=== PATIENT | male | born 1955 | race Caucasian/White ===

== ENCOUNTER 2019-05-09 01:09 | Observation (INO) | payer MEDICARE ==
[~2019-05-09] VITALS: Ht 180.3 cm; Wt 93.9 kg
[2019-05-12 13:15] VITALS: BP 145/79
== END 2019-05-12 16:46 ==
LOC: ED 02:33 → INTOOBSV 03:42 → EDIP 03:42 → 4WST 04:56
PROVIDERS: ADMIT Internal Medicine; ATTEND Internal Medicine
DX: I63.9 Cerebral infarction, unspecified (principal); G81.94 Hemiplegia, unspecified affecting left nondominant side; R13.10 Dysphagia, unspecified; I21.4 Non-ST elevation (NSTEMI) myocardial infarction; I11.0 Hypertensive heart disease with heart failure; I50.30 Unspecified diastolic (congestive) heart failure; I25.10 Atherosclerotic heart disease of native coronary artery without angina pectoris; I48.91 Unspecified atrial fibrillation; R17 Unspecified jaundice; E78.5 Hyperlipidemia, unspecified; R29.6 Repeated falls; E86.0 Dehydration; R79.89 Other specified abnormal findings of blood chemistry; E11.649 Type 2 diabetes mellitus with hypoglycemia without coma; D68.59 Other primary thrombophilia; Z79.82 Long term (current) use of aspirin; Z79.84 Long term (current) use of oral hypoglycemic drugs; Z79.899 Other long term (current) drug therapy; Z74.2 Need for assistance at home and no other household member able to render care; Z95.5 Presence of coronary angioplasty implant and graft; Z79.02 Long term (current) use of antithrombotics/antiplatelets
CPT/HCPCS: 70450; 71045; 80053; 81003; 82947; 82962; 83036; 83605; 84484; 85025; 85610; 93005; 96361; 96372; 96374; 96375; 97116; 97162; 97530; 99291; G0378; J1815; J2405; J7030; J7042

== ENCOUNTER 2019-08-04 16:57 | Inpatient (IN) | payer MEDICARE ==
[~2019-08-04] VITALS: Ht 182.9 cm; Wt 96.1 kg
[~2019-08-04 16:57] MED LIST: AMLO5TAB10 PO; APIX5TAB PO; ASPI81TA45 PO; ATOR40TA78 PO; BLOO1EAC91 SC; ENAL10TA PO; GLIP5TAB10 PO; INSU100I11 SQ-INSULIN; LANC1COM SC; LISI-170 PO; METF10007 PO; METF500T PO; METO-93 PO; METO50TA82 PO; TICA90TA PO; UBID100C24 PO; enalapril PO; statin PO
--- NOTE | 2019-08-04 17:16 | NUR ---
PT BIB [facility] FOR INCREASED LETHARGY, NAUSEA AND VOMITTING BLOODY X 3 DAYS. PT + FOR TAKING BLOOD THINNERS (CARDIAC HX). PT GIVEN IVP 4MG ZOFRAN EN ROUTE BY EMS, 20G PIV R HAND AND 18G PIV L FOREARM ESTABLISHED IN FIELD. FS PER EMS WAS 125. PT AAO X 4, DRESSED IN GOWN AND ATTACHED TO MONITOR. PER REPORT, PT HAS AXILLARY TEMP OF 102, TEMP HERE ORALLY WAS 99.5. ROOM AIR, NAD, RAPID RESPIRATORY RATE WITH SHALLOW RESPIRATIONS, LUNG SOUNDS CLEAR. CALL LIGHT WITHIN REACH AND SIDERAIL X [address] MED REC COMPLETED.
[2019-08-04] MEDS ORDERED: SODIUM CHLORIDE 0.9% 1,000 ML IV ONE (17:33)
--- NOTE | 2019-08-04 17:51 | NUR ---
PA AT BEDSIDE, RECTAL TEMP RECHECK 99.5 AND GUIAC -.
[2019-08-04 17:52] LABS: MEAN CORPUSCULAR HEMOGLOBIN 28.6 pg (27.5-34.5); MEAN CORPUSCULAR HGB CONC 32.7 g/dL (33.2-36.2); MEAN CORPUSCULAR VOLUME 87.6 fL (81-97); MEAN PLATELET VOLUME 9.7 fL (7.4-10.4); PLATELET COUNT 259 x10^3/uL (130-400); RED BLOOD COUNT 3.89 x10^6/uL (4.38-5.82); RED CELL DISTRIBUTION WIDTH 13.7 % (9.4-14.8)
[2019-08-04 18:00] LABS: ANION GAP 7 mmol/L (5-15); CHLORIDE 112 mmol/L (98-107); CREATININE 0.78 mg/dL (0.7-1.3)
[2019-08-04 18:01] LABS: ALANINE AMINOTRANSFERASE 24 U/L (12-78); ALBUMIN 3.9 g/dL (3.4-5.0)
[2019-08-04 18:05] LABS: ALKALINE PHOSPHATASE 179 U/L (45-117); BILIRUBIN,TOTAL 2.1 mg/dL (0.2-1.0); TOTAL PROTEIN 7.1 g/dL (6.4-8.2); TROPONIN I < 0.015 ng/mL (0.000-0.045)
--- NOTE | 2019-08-04 18:05 | NUR ---
IVF INFUSING PER PA ORDER.
[2019-08-04 18:14] LABS: INTERNATIONAL NORMALIZED RATIO 1.09 (0.93-1.1); PROTHROMBIN TIME 11.4 Seconds (9.6-11.5)
[2019-08-04] MEDS ORDERED: ONDANSETRON 2MG/ML, 2ML IVPush ONE (18:30)
[2019-08-04 18:38] LABS: MD YES
[2019-08-04 18:40] LABS: BAND#(MANUAL) 1.66 x10^3/uL; BANDS%(MANUAL) 13 % (0-7); LYMPH#(MANUAL) 0.26 x10^3/uL (1-3.4); LYMPHS% (MANUAL) 2 % (22-44); MONOS#(MANUAL) 0.38 x10^3/uL (0.3-2.7); MONOS% (MANUAL) 3 % (2-9); SEGS% (MANUAL) 82 % (42-75)
[2019-08-04] MEDS ORDERED: ONDANSETRON 2MG/ML, 2ML ONE (18:40)
[2019-08-04 18:41] LABS: <PLATELET ESTIMATE> ADEQUATE; <RBC MORPHOLOGY> NORMAL; LARGE PLATELETS 1+
--- NOTE | 2019-08-04 18:43 | NUR ---
MD AT BEDSIDE FOR EVAL. PT MEDICATED FOR NAUSEA.
--- NOTE | 2019-08-04 19:11 | NUR ---
PT GIVEN URINAL AND EDUCATED ON NEED FOR URINE SAMPLE. PT VERBALIZED UNDERSTANDING.
[2019-08-04] MEDS ORDERED: POTASSIUM CHLORIDE 20 MEQ in SODIUM CHLORIDE 0.9% 1,000 ML IV ONE (19:34)
[2019-08-04] MEDS ORDERED: NS + 20MEQ KCL 1,000 ML IV ONE (19:53)
--- NOTE | 2019-08-04 19:57 | NUR ---
NEW ORDERS RECEIVED AND IMPLEMENTED, ADMITTING MD AT BEDSIDE.
[2019-08-04] MEDS ORDERED: SODIUM CHLORIDE FLUSH 10ML SYR IVF PRN (20:00)
[2019-08-04] MEDS ORDERED: CEFTRIAXONE PMX 2GM/50ML 50 ML IV SCH (20:30)
[2019-08-04] MEDS ORDERED: POTASSIUM CHLORIDE 40 MEQ in SODIUM CHLORIDE 0.9% 500 ML IV ONE (20:30)
[2019-08-04] MEDS ORDERED: PROMETHAZINE 25 MG/ML, 1ML IM PRN (20:30)
[2019-08-04] MEDS ORDERED: ACETAMINOPHEN 325 MG TABLET PO PRN (20:30)
[2019-08-04] MEDS ORDERED: ENALAPRILAT 1.25 MG/ML, 2ML IVPush PRN (20:30)
--- NOTE | 2019-08-04 20:33 | NUR ---
REPORT GIVEN TO NHI CORREA. PT TO TRANFER TO INPATIENT STATUS.
--- NOTE | 2019-08-04 20:44 | NUR ---
REPORT GIVEN TO NHI LINCOLN. PT TO TRANSFER TO INPATIENT STATUS.
[2019-08-04 21:30] LABS: HEMOGLOBIN A1C 6.3 % (4.2-6.3)
[2019-08-04 21:31] LABS: MICROSCOPIC NOT IND
[2019-08-04 21:32] LABS: CULTURE INDICATED? NO
[2019-08-04] MEDS: PANTOPRAZOLE 40 MG IV IVPush SCH (22:36)
[2019-08-04] MEDS: INSULIN LISPRO 100 UNITS/ML, PEN SQ-INSULIN SCH (22:54)
[2019-08-04] MEDS: LACTATED RINGERS 1,000 ML IV SCH (23:20)
[2019-08-04] MEDS: LISINOPRIL 20 MG TABLET PO SCH (23:21)
[2019-08-04 23:23] VITALS: BP 123/73
[2019-08-05] VITALS (9 sets, daily range): BP systolic 128–207; BP diastolic 72–107
[2019-08-05] MEDS ORDERED: OMNIPAQUE 350 MG/ML, 100ML BOTTLE ONE ×2 (01:07→22:48)
[2019-08-05 02:43] LABS: MEAN CORPUSCULAR HGB CONC 32.3 g/dL (33.2-36.2); MEAN CORPUSCULAR VOLUME 89.8 fL (81-97); MEAN PLATELET VOLUME 9.3 fL (7.4-10.4); PLATELET COUNT 243 x10^3/uL (130-400); RED CELL DISTRIBUTION WIDTH 13.9 % (9.4-14.8)
[2019-08-05 02:53] LABS: ALANINE AMINOTRANSFERASE 20 U/L (12-78); ALBUMIN 3.2 g/dL (3.4-5.0); ANION GAP 7 mmol/L (5-15); CALCIUM 8.2 mg/dL (8.5-10.1); CHLORIDE 112 mmol/L (98-107); CREATININE 0.71 mg/dL (0.7-1.3)
[2019-08-05 02:56] LABS: ALKALINE PHOSPHATASE 138 U/L (45-117); BAND#(MANUAL) 0.76 x10^3/uL; BANDS%(MANUAL) 4 % (0-7); BILIRUBIN,TOTAL 2.2 mg/dL (0.2-1.0); LYMPH#(MANUAL) 1.14 x10^3/uL (1-3.4); LYMPHS% (MANUAL) 6 % (22-44); MD YES; MONOS#(MANUAL) 1.14 x10^3/uL (0.3-2.7); MONOS% (MANUAL) 6 % (2-9); SEG#(MANUAL) 15.96 x10^3/uL (1.8-6.8); SEGS% (MANUAL) 84 % (42-75); TOTAL PROTEIN 6.3 g/dL (6.4-8.2)
[2019-08-05 02:57] LABS: <PLATELET ESTIMATE> ADEQUATE; <RBC MORPHOLOGY> NORMAL
[2019-08-05 02:58] LABS: LARGE PLATELETS 1+
[2019-08-05] MEDS: INSULIN LISPRO 100 UNITS/ML, PEN SQ-INSULIN SCH ×4 (07:00→20:25)
[2019-08-05] MEDS: LISINOPRIL 20 MG TABLET PO SCH ×2 (08:20→21:00)
[2019-08-05] MEDS: METOPROLOL SUCCINATE 50 MG TAB.ER.24H PO SCH (08:21)
[2019-08-05] MEDS: PANTOPRAZOLE 40 MG IV IVPush SCH ×2 (08:21→23:10)
[2019-08-05] MEDS: LACTATED RINGERS 1,000 ML IV SCH ×2 (08:22→16:15)
[2019-08-05] MEDS: ONDANSETRON 2MG/ML, 2ML IVPush PRN (14:42)
[2019-08-05] MEDS ORDERED: AMPICILLIN/SULBACTAM 3 GM in SODIUM CHLORIDE 0.9% 100 ML IV SCH (16:00)
[2019-08-05 18:14] LABS: BILIRUBIN, DIRECT 0.3 mg/dL (0.1-0.2); BILIRUBIN,INDIRECT 1.8 mg/dL (0.0-2.0); BILIRUBIN,TOTAL 2.1 mg/dL (0.2-1.0)
[2019-08-05] MEDS ORDERED: hydrALAzine 20 MG/ML, 1ML IV ONE (21:00)
[2019-08-05] MEDS ORDERED: VANCOMYCIN PER PHARMACY MC PRN (22:30)
[2019-08-05] MEDS ORDERED: PHARMACOKINETIC MONITORING MC PRN (23:00)
[2019-08-05] MEDS: PIPERACILLIN/TAZO/PMX 3.375GM 50 ML IV SCH (23:09)
[2019-08-05 23:31] LABS: ALANINE AMINOTRANSFERASE 19 U/L (12-78); ALBUMIN 3.2 g/dL (3.4-5.0); ANION GAP 9 mmol/L (5-15); CALCIUM 8.4 mg/dL (8.5-10.1); CHLORIDE 104 mmol/L (98-107); CREATININE 0.67 mg/dL (0.7-1.3)
[2019-08-05 23:33] LABS: BASOPHILS # (AUTO) 0.05 x10^3/uL (0-0.1); BASOPHILS % (AUTO) 0 % (0-1); EOSINOPHILS % (AUTO) 0 % (1-7); LYMPHOCYTES % (AUTO) 3 % (22-44); MD NO; MEAN CORPUSCULAR HEMOGLOBIN 28.4 pg (27.5-34.5); MEAN CORPUSCULAR HGB CONC 32.5 g/dL (33.2-36.2); MEAN CORPUSCULAR VOLUME 87.7 fL (81-97); MEAN PLATELET VOLUME 10.1 fL (7.4-10.4); MONOCYTES # (AUTO) 0.49 x10^3/uL (0.2-0.8); MONOCYTES % (AUTO) 4 % (2-9); NEUTROPHILS # (AUTO) 12.94 x10^3/uL (1.8-6.8); NEUTROPHILS % (AUTO) 93 % (42-75); PLATELET COUNT 146 x10^3/uL (130-400); RED BLOOD COUNT 3.82 x10^6/uL (4.38-5.82); RED CELL DISTRIBUTION WIDTH 13.6 % (9.4-14.8)
[2019-08-05 23:35] LABS: ALKALINE PHOSPHATASE 138 U/L (45-117); BILIRUBIN,TOTAL 2.2 mg/dL (0.2-1.0); TOTAL PROTEIN 6.5 g/dL (6.4-8.2); TROPONIN I 0.039 ng/mL (0.000-0.045)
[2019-08-05] MEDS: VANCOMYCIN 2,000 MG in SODIUM CHLORIDE 0.9% 500 ML IV SCH (23:51)
[2019-08-06] MEDS ORDERED: POTASSIUM PHOSPHATE 22 MEQ in SODIUM CHLORIDE 0.9% 500 ML IV ONE
[2019-08-06 02:17] LABS: MICROSCOPIC NOT IND
[2019-08-06 02:26] LABS: CULTURE INDICATED? NO
[2019-08-06 04:41] LABS: BASOPHILS # (AUTO) 0.03 x10^3/uL (0-0.1); BASOPHILS % (AUTO) 0 % (0-1); EOSINOPHILS # (AUTO) 0.15 x10^3/uL (0-0.4); EOSINOPHILS % (AUTO) 1 % (1-7); LYMPHOCYTES # (AUTO) 0.69 x10^3/uL (1-3.4); LYMPHOCYTES % (AUTO) 5 % (22-44); MD NO; MEAN CORPUSCULAR HEMOGLOBIN 29.1 pg (27.5-34.5); MEAN CORPUSCULAR HGB CONC 32.8 g/dL (33.2-36.2); MEAN CORPUSCULAR VOLUME 88.8 fL (81-97); MEAN PLATELET VOLUME 9.5 fL (7.4-10.4); MONOCYTES # (AUTO) 0.75 x10^3/uL (0.2-0.8); MONOCYTES % (AUTO) 5 % (2-9); NEUTROPHILS # (AUTO) 12.51 x10^3/uL (1.8-6.8); NEUTROPHILS % (AUTO) 89 % (42-75); PLATELET COUNT 220 x10^3/uL (130-400); RED BLOOD COUNT 3.82 x10^6/uL (4.38-5.82); RED CELL DISTRIBUTION WIDTH 13.6 % (9.4-14.8)
[2019-08-06 04:53] LABS: ALANINE AMINOTRANSFERASE 16 U/L (12-78); ANION GAP 8 mmol/L (5-15); CALCIUM 8.4 mg/dL (8.5-10.1); CHLORIDE 107 mmol/L (98-107); CREATININE 0.61 mg/dL (0.7-1.3)
[2019-08-06 04:55] LABS: ALKALINE PHOSPHATASE 124 U/L (45-117); BILIRUBIN,TOTAL 2.2 mg/dL (0.2-1.0); TOTAL PROTEIN 6.3 g/dL (6.4-8.2)
[2019-08-06] MEDS: PIPERACILLIN/TAZO/PMX 3.375GM 50 ML IV SCH ×4 (04:55→22:40)
[2019-08-06] MEDS: INSULIN LISPRO 100 UNITS/ML, PEN SQ-INSULIN SCH ×4 (07:00→21:05)
[2019-08-06] MEDS ORDERED: FENTANYL PF 100 MCG/2ML ONE ×2 (07:55→07:56)
[2019-08-06] MEDS ORDERED: MIDAZOLAM 1 MG/ML, 5ML ONE (07:56)
[2019-08-06] MEDS ORDERED: MAGNESIUM SULFATE PMX 2GM/50ML 50 ML IV ONE ×2 (08:00)
[2019-08-06] MEDS ORDERED: PROPOFOL 10 MG/ML, 20ML ONE (08:00)
[2019-08-06] MEDS: PANTOPRAZOLE 40 MG IV IVPush SCH ×2 (08:30→17:09)
[2019-08-06] MEDS: METOPROLOL SUCCINATE 50 MG TAB.ER.24H PO SCH (10:31)
[2019-08-06] MEDS: LISINOPRIL 20 MG TABLET PO SCH ×2 (10:32→21:05)
[2019-08-06] MEDS: VANCOMYCIN 2,000 MG in SODIUM CHLORIDE 0.9% 500 ML IV SCH (17:10)
[2019-08-07 04:38] LABS: BASOPHILS # (AUTO) 0.09 x10^3/uL (0-0.1); BASOPHILS % (AUTO) 1 % (0-1); EOSINOPHILS # (AUTO) 0.09 x10^3/uL (0-0.4); EOSINOPHILS % (AUTO) 1 % (1-7); LYMPHOCYTES # (AUTO) 1.13 x10^3/uL (1-3.4); LYMPHOCYTES % (AUTO) 13 % (22-44); MD NO; MEAN CORPUSCULAR HEMOGLOBIN 28.4 pg (27.5-34.5); MEAN CORPUSCULAR HGB CONC 32.6 g/dL (33.2-36.2); MEAN PLATELET VOLUME 9.9 fL (7.4-10.4); MONOCYTES # (AUTO) 0.78 x10^3/uL (0.2-0.8); MONOCYTES % (AUTO) 9 % (2-9); NEUTROPHILS # (AUTO) 6.79 x10^3/uL (1.8-6.8); NEUTROPHILS % (AUTO) 77 % (42-75); PLATELET COUNT 217 x10^3/uL (130-400); RED BLOOD COUNT 3.75 x10^6/uL (4.38-5.82); RED CELL DISTRIBUTION WIDTH 13.5 % (9.4-14.8)
[2019-08-07 04:48] LABS: ALBUMIN 2.9 g/dL (3.4-5.0); ANION GAP 7 mmol/L (5-15); CALCIUM 8.1 mg/dL (8.5-10.1); CHLORIDE 108 mmol/L (98-107)
[2019-08-07 04:52] LABS: ALANINE AMINOTRANSFERASE 14 U/L (12-78); ALKALINE PHOSPHATASE 113 U/L (45-117); BILIRUBIN,TOTAL 2.2 mg/dL (0.2-1.0); CREATININE 0.68 mg/dL (0.7-1.3)
[2019-08-07] MEDS: PIPERACILLIN/TAZO/PMX 3.375GM 50 ML IV SCH ×4 (04:59→22:27)
[2019-08-07] MEDS: INSULIN LISPRO 100 UNITS/ML, PEN SQ-INSULIN SCH ×4 (07:00→20:51)
[2019-08-07] MEDS: ONDANSETRON 2MG/ML, 2ML IVPush PRN (07:20)
[2019-08-07] MEDS: PANTOPRAZOLE 40 MG IV IVPush SCH ×2 (07:20→16:15)
[2019-08-07] MEDS: METOPROLOL SUCCINATE 50 MG TAB.ER.24H PO SCH (08:56)
[2019-08-07] MEDS: LISINOPRIL 20 MG TABLET PO SCH ×2 (08:57→20:44)
[2019-08-07] MEDS: POTASSIUM CHLORIDE 10% 40 MEQ/30 ML UDC PO SCH ×2 (08:57→20:43)
[2019-08-07] MEDS: VANCOMYCIN 2,000 MG in SODIUM CHLORIDE 0.9% 500 ML IV SCH (11:16)
[2019-08-07] MEDS: TEMAZEPAM 15 MG CAPSULE PO PRN ×2 (20:43→22:27)
[2019-08-07] MEDS: APIXABAN 5 MG TABLET PO SCH (20:44)
[2019-08-08 01:45] VITALS: BP 164/95
[2019-08-08] MEDS: PIPERACILLIN/TAZO/PMX 3.375GM 50 ML IV SCH ×4 (04:30→22:33)
[2019-08-08 05:04] LABS: CHLORIDE 109 mmol/L (98-107)
[2019-08-08 05:08] LABS: BASOPHILS # (AUTO) 0.12 x10^3/uL (0-0.1); BASOPHILS % (AUTO) 2 % (0-1); EOSINOPHILS # (AUTO) 0.31 x10^3/uL (0-0.4); EOSINOPHILS % (AUTO) 5 % (1-7); LYMPHOCYTES # (AUTO) 1.75 x10^3/uL (1-3.4); LYMPHOCYTES % (AUTO) 27 % (22-44); MD NO; MEAN CORPUSCULAR HEMOGLOBIN 28.8 pg (27.5-34.5); MEAN CORPUSCULAR HGB CONC 33.1 g/dL (33.2-36.2); MEAN PLATELET VOLUME 10.2 fL (7.4-10.4); MONOCYTES # (AUTO) 0.68 x10^3/uL (0.2-0.8); MONOCYTES % (AUTO) 10 % (2-9); NEUTROPHILS # (AUTO) 3.69 x10^3/uL (1.8-6.8); NEUTROPHILS % (AUTO) 56 % (42-75); PLATELET COUNT 233 x10^3/uL (130-400); RED CELL DISTRIBUTION WIDTH 13.6 % (9.4-14.8)
[2019-08-08] MEDS: VANCOMYCIN 2,000 MG in SODIUM CHLORIDE 0.9% 500 ML IV SCH (05:10)
[2019-08-08 05:14] LABS: ANION GAP 6 mmol/L (5-15); CALCIUM 8.8 mg/dL (8.5-10.1); CREATININE 0.72 mg/dL (0.7-1.3); VANCOMYCIN,TROUGH 10.3 mcg/mL (5.0-10.0)
[2019-08-08 08:00] VITALS: BP 152/85
[2019-08-08] MEDS: INSULIN LISPRO 100 UNITS/ML, PEN SQ-INSULIN SCH ×4 (08:03→20:20)
[2019-08-08] MEDS: PANTOPRAZOLE 40 MG IV IVPush SCH ×2 (08:21→16:48)
[2019-08-08] MEDS: LISINOPRIL 20 MG TABLET PO SCH ×2 (08:21→20:19)
[2019-08-08] MEDS: APIXABAN 5 MG TABLET PO SCH ×2 (08:21→20:19)
[2019-08-08] MEDS: METOPROLOL SUCCINATE 50 MG TAB.ER.24H PO SCH (08:21)
[2019-08-08 10:42] VITALS: BP 154/91
[2019-08-08 13:26] VITALS: BP 161/94
[2019-08-08 14:41] VITALS: BP 149/81
[2019-08-08 19:45] VITALS: BP 160/90
[2019-08-08] MEDS: TEMAZEPAM 15 MG CAPSULE PO PRN ×2 (20:19→21:27)
[2019-08-09 00:46] VITALS: BP 183/111
[2019-08-09 00:55] VITALS: BP 164/81
[2019-08-09] MEDS: PIPERACILLIN/TAZO/PMX 3.375GM 50 ML IV SCH ×2 (04:19→10:09)
[2019-08-09 05:24] LABS: BASOPHILS # (AUTO) 0.11 x10^3/uL (0-0.1); BASOPHILS % (AUTO) 1 % (0-1); EOSINOPHILS # (AUTO) 0.32 x10^3/uL (0-0.4); EOSINOPHILS % (AUTO) 4 % (1-7); LYMPHOCYTES # (AUTO) 1.74 x10^3/uL (1-3.4); LYMPHOCYTES % (AUTO) 22 % (22-44); MD NO; MEAN CORPUSCULAR HEMOGLOBIN 28.1 pg (27.5-34.5); MEAN CORPUSCULAR HGB CONC 32.4 g/dL (33.2-36.2); MEAN CORPUSCULAR VOLUME 86.7 fL (81-97); MEAN PLATELET VOLUME 9.7 fL (7.4-10.4); MONOCYTES # (AUTO) 0.68 x10^3/uL (0.2-0.8); MONOCYTES % (AUTO) 9 % (2-9); NEUTROPHILS # (AUTO) 4.91 x10^3/uL (1.8-6.8); NEUTROPHILS % (AUTO) 63 % (42-75); PLATELET COUNT 248 x10^3/uL (130-400); RED BLOOD COUNT 3.84 x10^6/uL (4.38-5.82); RED CELL DISTRIBUTION WIDTH 13.8 % (9.4-14.8)
[2019-08-09 05:34] LABS: ANION GAP 7 mmol/L (5-15); CALCIUM 8.2 mg/dL (8.5-10.1); CHLORIDE 107 mmol/L (98-107); CREATININE 0.73 mg/dL (0.7-1.3)
[2019-08-09 07:05] VITALS: BP 152/92
[2019-08-09 08:33] LABS: OCCULT BLOOD NEGATIVE (NEGATIVE)
[2019-08-09] MEDS: PANTOPRAZOLE 40 MG IV IVPush SCH ×2 (08:36→16:48)
[2019-08-09] MEDS: LISINOPRIL 20 MG TABLET PO SCH ×2 (08:37→20:17)
[2019-08-09] MEDS: INSULIN LISPRO 100 UNITS/ML, PEN SQ-INSULIN SCH ×4 (08:37→20:18)
[2019-08-09] MEDS: METOPROLOL SUCCINATE 50 MG TAB.ER.24H PO SCH (08:37)
[2019-08-09] MEDS: APIXABAN 5 MG TABLET PO SCH ×2 (08:37→20:17)
[2019-08-09 14:15] VITALS: BP 158/88
[2019-08-09] MEDS: CEFTRIAXONE PMX 2GM/50ML 50 ML IV SCH (16:48)
[2019-08-09 18:58] VITALS: BP 199/103
[2019-08-09 20:04] VITALS: BP 171/91
[2019-08-09] MEDS: TEMAZEPAM 15 MG CAPSULE PO PRN ×2 (20:17→21:39)
[2019-08-10 01:38] VITALS: BP 157/94
[2019-08-10] MEDS: CEFTRIAXONE PMX 2GM/50ML 50 ML IV SCH ×2 (04:22→16:20)
[2019-08-10 05:25] LABS: CHLORIDE 107 mmol/L (98-107)
[2019-08-10 05:30] LABS: ANION GAP 8 mmol/L (5-15); CALCIUM 8.6 mg/dL (8.5-10.1); CREATININE 0.68 mg/dL (0.7-1.3)
[2019-08-10 05:46] LABS: BASOPHILS % (AUTO) 1 % (0-1); EOSINOPHILS # (AUTO) 0.37 x10^3/uL (0-0.4); EOSINOPHILS % (AUTO) 4 % (1-7); LYMPHOCYTES # (AUTO) 1.85 x10^3/uL (1-3.4); LYMPHOCYTES % (AUTO) 20 % (22-44); MD NO; MEAN CORPUSCULAR HEMOGLOBIN 28.6 pg (27.5-34.5); MEAN CORPUSCULAR HGB CONC 33.2 g/dL (33.2-36.2); MEAN CORPUSCULAR VOLUME 86.3 fL (81-97); MEAN PLATELET VOLUME 9.4 fL (7.4-10.4); MONOCYTES # (AUTO) 0.71 x10^3/uL (0.2-0.8); MONOCYTES % (AUTO) 8 % (2-9); NEUTROPHILS # (AUTO) 6.38 x10^3/uL (1.8-6.8); NEUTROPHILS % (AUTO) 68 % (42-75); PLATELET COUNT 300 x10^3/uL (130-400); RED BLOOD COUNT 4.03 x10^6/uL (4.38-5.82); RED CELL DISTRIBUTION WIDTH 13.4 % (9.4-14.8)
[2019-08-10] MEDS: INSULIN LISPRO 100 UNITS/ML, PEN SQ-INSULIN SCH ×4 (07:00→20:24)
[2019-08-10 08:26] VITALS: BP 139/93
[2019-08-10] MEDS: LISINOPRIL 20 MG TABLET PO SCH ×2 (08:29→20:23)
[2019-08-10] MEDS: APIXABAN 5 MG TABLET PO SCH ×2 (08:29→20:23)
[2019-08-10] MEDS: PANTOPRAZOLE 40 MG IV IVPush SCH ×2 (08:29→16:20)
[2019-08-10] MEDS: METOPROLOL SUCCINATE 50 MG TAB.ER.24H PO SCH (08:29)
[2019-08-10 14:23] VITALS: BP 164/98
[2019-08-10] MEDS: TEMAZEPAM 15 MG CAPSULE PO PRN ×2 (20:23→21:26)
[2019-08-10 20:44] VITALS: BP 157/87
[2019-08-11 00:57] VITALS: BP 160/89
[2019-08-11] MEDS: CEFTRIAXONE PMX 2GM/50ML 50 ML IV SCH ×2 (04:37→12:10)
[2019-08-11 05:29] LABS: BASOPHILS % (AUTO) 1 % (0-1); EOSINOPHILS # (AUTO) 0.36 x10^3/uL (0-0.4); EOSINOPHILS % (AUTO) 4 % (1-7); LYMPHOCYTES # (AUTO) 1.58 x10^3/uL (1-3.4); LYMPHOCYTES % (AUTO) 16 % (22-44); MD NO; MEAN CORPUSCULAR HEMOGLOBIN 29.1 pg (27.5-34.5); MEAN CORPUSCULAR HGB CONC 33.3 g/dL (33.2-36.2); MEAN CORPUSCULAR VOLUME 87.2 fL (81-97); MONOCYTES # (AUTO) 0.82 x10^3/uL (0.2-0.8); MONOCYTES % (AUTO) 8 % (2-9); NEUTROPHILS # (AUTO) 7.17 x10^3/uL (1.8-6.8); NEUTROPHILS % (AUTO) 72 % (42-75); PLATELET COUNT 312 x10^3/uL (130-400); RED BLOOD COUNT 3.94 x10^6/uL (4.38-5.82); RED CELL DISTRIBUTION WIDTH 13.7 % (9.4-14.8)
[2019-08-11 05:41] LABS: ANION GAP 7 mmol/L (5-15); CALCIUM 8.8 mg/dL (8.5-10.1); CHLORIDE 107 mmol/L (98-107)
[2019-08-11 05:42] LABS: CREATININE 0.76 mg/dL (0.7-1.3)
[2019-08-11] MEDS: APIXABAN 5 MG TABLET PO SCH ×2 (08:37→20:54)
[2019-08-11] MEDS: METOPROLOL SUCCINATE 50 MG TAB.ER.24H PO SCH (08:37)
[2019-08-11] MEDS: PANTOPRAZOLE 40 MG IV IVPush SCH ×2 (08:37→17:31)
[2019-08-11] MEDS: LISINOPRIL 20 MG TABLET PO SCH ×2 (08:38→20:53)
[2019-08-11] MEDS: INSULIN LISPRO 100 UNITS/ML, PEN SQ-INSULIN SCH ×4 (08:39→20:55)
[2019-08-11 12:30] VITALS: BP 143/89
[2019-08-11 15:22] VITALS: BP 150/88
[2019-08-11 18:50] VITALS: BP 148/80
[2019-08-11] MEDS: TEMAZEPAM 15 MG CAPSULE PO PRN ×2 (20:54→22:11)
[2019-08-12 00:03] VITALS: BP 154/82
[2019-08-12 07:55] VITALS: BP 133/81
[2019-08-12] MEDS: PANTOPRAZOLE 40 MG IV IVPush SCH (08:35)
[2019-08-12] MEDS: APIXABAN 5 MG TABLET PO SCH (08:36)
[2019-08-12] MEDS: METOPROLOL SUCCINATE 50 MG TAB.ER.24H PO SCH (08:36)
[2019-08-12] MEDS: INSULIN LISPRO 100 UNITS/ML, PEN SQ-INSULIN SCH ×2 (08:36→11:00)
[2019-08-12] MEDS: LISINOPRIL 20 MG TABLET PO SCH (08:36)
[2019-08-12] MEDS: CEFTRIAXONE PMX 2GM/50ML 50 ML IV SCH (08:36)
[2019-08-12] MEDS ORDERED: PANTOPROZOLE 40MG TABLET PO SCH (09:30)
[2019-08-12 13:15] VITALS: BP 138/81
[2019-08-12] MEDS ORDERED: CEFT2FRO2 IV (15:54)
[2019-08-12] MEDS ORDERED: PANT40TA5 PO (15:54)
== END 2019-08-12 17:15 | DRG 871 ==
LOC: ED 17:31 → EDIP 19:34 → 4EST 20:50 → CCU 08-05 21:41 → 4EST 08-08 10:38
PROVIDERS: ADMIT Family Medicine; ATTEND Internal Medicine
PROC: 0DJ08ZZ Inspection of Upper Intestinal Tract, Via Natural or Artificial Opening Endoscopic (ICD-10-PCS; 2019-08-06)
PROC: 0T9B70Z Drainage of Bladder with Drainage Device, Via Natural or Artificial Opening (ICD-10-PCS; principal; 2019-08-06 09:00)
DX: A40.8 Other streptococcal sepsis (principal); K29.01 Acute gastritis with bleeding; J15.4 Pneumonia due to other streptococci; J96.01 Acute respiratory failure with hypoxia; N39.0 Urinary tract infection, site not specified; D68.69 Other thrombophilia; E87.2 Acidosis; I50.30 Unspecified diastolic (congestive) heart failure; I69.354 Hemiplegia and hemiparesis following cerebral infarction affecting left non-dominant side; I48.0 Paroxysmal atrial fibrillation; D64.9 Anemia, unspecified; E11.9 Type 2 diabetes mellitus without complications; E78.5 Hyperlipidemia, unspecified; E87.6 Hypokalemia; I11.0 Hypertensive heart disease with heart failure; I25.10 Atherosclerotic heart disease of native coronary artery without angina pectoris; I35.0 Nonrheumatic aortic (valve) stenosis; K40.90 Unilateral inguinal hernia, without obstruction or gangrene, not specified as recurrent; K44.9 Diaphragmatic hernia without obstruction or gangrene; R04.0 Epistaxis; R13.10 Dysphagia, unspecified; R32 Unspecified urinary incontinence; Z79.01 Long term (current) use of anticoagulants; Z79.84 Long term (current) use of oral hypoglycemic drugs; Z95.5 Presence of coronary angioplasty implant and graft; Z82.49 Family history of ischemic heart disease and other diseases of the circulatory system; I69.391 Dysphagia following cerebral infarction
CPT/HCPCS: 36415; 36600; 70100; 71045; 71275; 74018; 74177; 80048; 80053; 80202; 81003; 82247; 82248; 82272; 82330; 82803; 82962; 83036; 83605; 83690; 83735; 83880; 84100; 84484; 85014; 85018; 85025; 85610; 85730; 86850; 86900; 87040; 87077; 87081; 87181; 93005; 93308; 93321; 93325; 96374; 96375; G0378; J0295; J0696; J2250; J2405; J2543; J2704; J3010; J3370; J3480; Q9967; C9113; J0360; J1815; J3475; J7030; J7040; J7120

== ENCOUNTER 2019-10-13 13:12 | Outpatient (CLI) | payer MEDICARE ==
[~2019-10-13 13:12] MED LIST changes: +CEFT2FRO2 IV; +PANT40TA5 PO
== END 2019-10-13 23:59 | disposition home or self-care (01) ==
LOC: RAD 13:12
PROVIDERS: ATTEND Family Medicine
DX: J98.11 Atelectasis (principal); J90 Pleural effusion, not elsewhere classified; I11.0 Hypertensive heart disease with heart failure; I50.9 Heart failure, unspecified
CPT/HCPCS: 71046

== ENCOUNTER 2019-11-11 13:30 | Inpatient (IN) | payer MEDICARE ==
[~2019-11-11] VITALS: Ht 182.9 cm; Wt 100.1 kg
--- NOTE | 2019-11-11 13:35 | NUR ---
LATE ENTRY DT PATIENT CARE: pt has had recent dx CHF, biba for exertional sob x2 days and bilateral LE edema x 2 weeks. 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 pt denies pain. all monitors in place. ERP Mota at bedside for initial assessment.
--- NOTE | 2019-11-11 13:57 | NUR ---
REPORT FROM ALEXANDRIA HANKINS, ASSUME CARE OF PT AT THIS TIME.
[2019-11-11] MEDS ORDERED: SODIUM CHLORIDE FLUSH 10ML SYR IVF ONE (14:00)
--- NOTE | 2019-11-11 14:00 | NUR ---
REPORT GIVEN TO NHI RIVERA AT BEDSIDE. ALL MONITORS IN PLACE. EKG HAS BEEN TAKEN BY EDT. AWAITING LABS, CXR AND DISPO.
[2019-11-11 14:43] LABS: BASOPHILS # (AUTO) 0.09 x10^3/uL (0-0.1); BASOPHILS % (AUTO) 1 % (0-1); EOSINOPHILS % (AUTO) 1 % (1-7); LYMPHOCYTES # (AUTO) 0.72 x10^3/uL (1-3.4); LYMPHOCYTES % (AUTO) 9 % (22-44); MD NO; MEAN CORPUSCULAR HEMOGLOBIN 25.4 pg (27.5-34.5); MEAN CORPUSCULAR HGB CONC 32.1 g/dL (33.2-36.2); MEAN PLATELET VOLUME 10.1 fL (7.4-10.4); MONOCYTES # (AUTO) 0.67 x10^3/uL (0.2-0.8); MONOCYTES % (AUTO) 8 % (2-9); NEUTROPHILS # (AUTO) 6.37 x10^3/uL (1.8-6.8); NEUTROPHILS % (AUTO) 80 % (42-75); PLATELET COUNT 289 x10^3/uL (130-400); RED BLOOD COUNT 4.02 x10^6/uL (4.38-5.82); RED CELL DISTRIBUTION WIDTH 15.5 % (9.4-14.8)
[2019-11-11 14:45] LABS: INTERNATIONAL NORMALIZED RATIO 1.15 (0.93-1.1); PROTHROMBIN TIME 12.2 Seconds (9.6-11.5)
[2019-11-11 14:46] LABS: ALBUMIN 3.3 g/dL (3.4-5.0); ANION GAP 8 mmol/L (5-15); CALCIUM 8.6 mg/dL (8.5-10.1); CHLORIDE 107 mmol/L (98-107); CREATININE 0.77 mg/dL (0.7-1.3)
[2019-11-11 14:50] LABS: TROPONIN I < 0.015 ng/mL (0.000-0.045)
[2019-11-11] MEDS ORDERED: FUROSEMIDE 40 MG/4 ML IV ONE (15:00)
[2019-11-11] MEDS ORDERED: SODIUM CHLORIDE FLUSH 10ML SYR IVF PRN (15:30)
[2019-11-11] MEDS ORDERED: GLUCAGON 1 MG IM PRN (15:30)
[2019-11-11] MEDS ORDERED: hydrALAzine 20 MG/ML, 1ML IVPush PRN (15:30)
[2019-11-11] MEDS ORDERED: ACETAMINOPHEN 325 MG TABLET PO PRN (15:30)
[2019-11-11] MEDS ORDERED: DEXTROSE 50%, 50ML SYRINGE IVPush PRN (15:30)
[2019-11-11] MEDS ORDERED: BACLOFEN 10 MG TABLET PO PRN (15:30)
[2019-11-11] MEDS ORDERED: morphine SULFATE 10 MG/ML, 1ML IVPush PRN (15:30)
[2019-11-11] MEDS ORDERED: DEXTROSE 4 GM TAB.CHEW PO PRN (15:30)
[2019-11-11] MEDS ORDERED: ONDANSETRON ODT 4 MG PO PRN (15:30)
[2019-11-11] MEDS ORDERED: ONDANSETRON 2MG/ML, 2ML IVPush PRN (15:30)
[2019-11-11] MEDS ORDERED: POTASSIUM CHLORIDE 10% 20 MEQ/15 ML UDC PO ONE (15:30)
[2019-11-11] MEDS: INSULIN LISPRO 100 UNITS/ML, PEN SQ-INSULIN SCH ×2 (16:00→21:00)
--- NOTE | 2019-11-11 16:00 | NUR ---
INSULIN HELD D/T GLUCOSE OF 130.
[2019-11-11] MEDS ORDERED: POTASSIUM CHLORIDE 20 MEQ PACKET ONE (16:10)
[2019-11-11] MEDS ORDERED: FUROSEMIDE 40 MG/4 ML ONE (16:10)
--- NOTE | 2019-11-11 16:32 | NUR ---
IV PLACED, DIFFICULT START. LASIX AND POTASSIUM GIVEN PER ORDER. URINAL AT BS. CALL LIGHT WITHIN REACH. POC UPDATED WITH PT.
--- NOTE | 2019-11-11 16:45 | NUR ---
MEAL TRAY PROVIDED.
--- NOTE | 2019-11-11 17:47 | NUR ---
PT ASSISTED WITH URINAL. PT UNABLE TO USE URINAL COMPLETELY, SOILED BEDDING CHANGED. HOSPITAL BED ORDERED FROM [facility]. 750 CC URINE OUT.
--- NOTE | 2019-11-11 18:47 | NUR ---
ATTEMPT TO CALL REPORT, RN NOT AVAILABLE.
--- NOTE | 2019-11-11 19:30 | NUR ---
REPORT TO CHRISTOPHER GRADY READY FOR TRANSPORT TO FLOOR.
[2019-11-11 20:00] VITALS: BP 134/87
[2019-11-11] MEDS: APIXABAN 5 MG TABLET PO SCH (22:15)
[2019-11-11] MEDS: ATORVASTATIN 40 MG TABLET PO SCH (22:15)
[2019-11-11] MEDS: SODIUM CHLORIDE FLUSH 10ML SYR IVF SCH (22:15)
[2019-11-11 23:38] LABS: TROPONIN I < 0.015 ng/mL (0.000-0.045)
[2019-11-11] MEDS: FUROSEMIDE 40 MG/4 ML IV SCH (23:58)
[2019-11-12 02:00] VITALS: BP 135/89
[2019-11-12 05:10] LABS: BASOPHILS # (AUTO) 0.11 x10^3/uL (0-0.1); BASOPHILS % (AUTO) 2 % (0-1); EOSINOPHILS # (AUTO) 0.17 x10^3/uL (0-0.4); EOSINOPHILS % (AUTO) 2 % (1-7); LYMPHOCYTES # (AUTO) 1.15 x10^3/uL (1-3.4); LYMPHOCYTES % (AUTO) 16 % (22-44); MD NO; MEAN CORPUSCULAR HEMOGLOBIN 25.5 pg (27.5-34.5); MEAN CORPUSCULAR HGB CONC 32.3 g/dL (33.2-36.2); MEAN PLATELET VOLUME 10.1 fL (7.4-10.4); MONOCYTES # (AUTO) 0.78 x10^3/uL (0.2-0.8); MONOCYTES % (AUTO) 11 % (2-9); NEUTROPHILS # (AUTO) 4.96 x10^3/uL (1.8-6.8); NEUTROPHILS % (AUTO) 69 % (42-75); PLATELET COUNT 308 x10^3/uL (130-400); RED BLOOD COUNT 4.17 x10^6/uL (4.38-5.82); RED CELL DISTRIBUTION WIDTH 15.1 % (9.4-14.8)
[2019-11-12 05:19] LABS: ANION GAP 7 mmol/L (5-15); CALCIUM 8.9 mg/dL (8.5-10.1); CHLORIDE 106 mmol/L (98-107)
[2019-11-12 05:26] LABS: CREATININE 0.86 mg/dL (0.7-1.3); TROPONIN I < 0.015 ng/mL (0.000-0.045)
[2019-11-12] MEDS: PANTOPROZOLE 40MG TABLET PO SCH (06:18)
[2019-11-12] MEDS: FUROSEMIDE 40 MG/4 ML IV SCH ×4 (06:18→21:00)
[2019-11-12] MEDS: INSULIN LISPRO 100 UNITS/ML, PEN SQ-INSULIN SCH ×4 (07:00→21:00)
[2019-11-12 07:03] VITALS: BP 130/82
[2019-11-12] MEDS: SODIUM CHLORIDE FLUSH 10ML SYR IVF SCH ×2 (09:33→21:08)
[2019-11-12] MEDS: APIXABAN 5 MG TABLET PO SCH ×2 (09:33→21:08)
[2019-11-12] MEDS: METOPROLOL SUCCINATE 50 MG TAB.ER.24H PO SCH (09:33)
[2019-11-12 12:08] VITALS: BP 117/77
[2019-11-12 19:51] VITALS: BP 136/73
[2019-11-12] MEDS: TEMAZEPAM 15 MG CAPSULE PO PRN (21:07)
[2019-11-12] MEDS: ATORVASTATIN 40 MG TABLET PO SCH (21:08)
[2019-11-13 01:24] VITALS: BP 119/76
[2019-11-13 05:28] LABS: BASOPHILS # (AUTO) 0.16 x10^3/uL (0-0.1); BASOPHILS % (AUTO) 2 % (0-1); EOSINOPHILS # (AUTO) 0.22 x10^3/uL (0-0.4); EOSINOPHILS % (AUTO) 3 % (1-7); LYMPHOCYTES % (AUTO) 17 % (22-44); MD NO; MEAN CORPUSCULAR HEMOGLOBIN 25.3 pg (27.5-34.5); MEAN CORPUSCULAR HGB CONC 31.7 g/dL (33.2-36.2); MEAN CORPUSCULAR VOLUME 79.8 fL (81-97); MEAN PLATELET VOLUME 10.2 fL (7.4-10.4); MONOCYTES # (AUTO) 0.97 x10^3/uL (0.2-0.8); MONOCYTES % (AUTO) 13 % (2-9); NEUTROPHILS % (AUTO) 65 % (42-75); PLATELET COUNT 304 x10^3/uL (130-400); RED BLOOD COUNT 3.98 x10^6/uL (4.38-5.82); RED CELL DISTRIBUTION WIDTH 15.3 % (9.4-14.8)
[2019-11-13 05:45] LABS: CHLORIDE 108 mmol/L (98-107)
[2019-11-13 05:56] LABS: % IRON SATURATION 4 % (20-55); ALANINE AMINOTRANSFERASE 17 U/L (12-78); ALBUMIN 2.9 g/dL (3.4-5.0); ALKALINE PHOSPHATASE 139 U/L (45-117); ANION GAP 5 mmol/L (5-15); BILIRUBIN,TOTAL 1.8 mg/dL (0.2-1.0); CALCIUM 8.5 mg/dL (8.5-10.1); CREATININE 0.89 mg/dL (0.7-1.3); IRON LEVEL 16 mcg/dL (65-175); TOTAL IRON BINDING CAPACITY 395 mcg/dL (250-450); TOTAL PROTEIN 6.3 g/dL (6.4-8.2)
[2019-11-13] MEDS: PANTOPROZOLE 40MG TABLET PO SCH (06:22)
[2019-11-13 06:50] VITALS: BP 119/72
[2019-11-13] MEDS: INSULIN LISPRO 100 UNITS/ML, PEN SQ-INSULIN SCH ×4 (07:00→20:32)
[2019-11-13] MEDS: METOPROLOL SUCCINATE 50 MG TAB.ER.24H PO SCH (09:18)
[2019-11-13] MEDS: APIXABAN 5 MG TABLET PO SCH ×2 (09:18→20:32)
[2019-11-13] MEDS: SODIUM CHLORIDE FLUSH 10ML SYR IVF SCH ×2 (09:19→20:38)
[2019-11-13] MEDS: FUROSEMIDE 40 MG/4 ML IV SCH ×2 (09:19→20:32)
[2019-11-13 13:41] VITALS: BP 129/80
[2019-11-13] MEDS: FERROUS SULFATE 325 MG TABLET PO SCH (18:20)
[2019-11-13 18:46] VITALS: BP 114/75
[2019-11-13] MEDS: ATORVASTATIN 40 MG TABLET PO SCH (20:32)
[2019-11-14 01:00] VITALS: BP 142/70
[2019-11-14 05:26] LABS: BASOPHILS # (AUTO) 0.15 x10^3/uL (0-0.1); BASOPHILS % (AUTO) 2 % (0-1); EOSINOPHILS # (AUTO) 0.25 x10^3/uL (0-0.4); EOSINOPHILS % (AUTO) 3 % (1-7); LYMPHOCYTES # (AUTO) 1.53 x10^3/uL (1-3.4); LYMPHOCYTES % (AUTO) 16 % (22-44); MD NO; MEAN CORPUSCULAR HEMOGLOBIN 25.5 pg (27.5-34.5); MEAN CORPUSCULAR VOLUME 79.8 fL (81-97); MEAN PLATELET VOLUME 10.1 fL (7.4-10.4); MONOCYTES # (AUTO) 1.13 x10^3/uL (0.2-0.8); MONOCYTES % (AUTO) 12 % (2-9); NEUTROPHILS # (AUTO) 6.55 x10^3/uL (1.8-6.8); NEUTROPHILS % (AUTO) 68 % (42-75); PLATELET COUNT 337 x10^3/uL (130-400); RED BLOOD COUNT 4.18 x10^6/uL (4.38-5.82); RED CELL DISTRIBUTION WIDTH 15.5 % (9.4-14.8)
[2019-11-14] MEDS: PANTOPROZOLE 40MG TABLET PO SCH (05:35)
[2019-11-14 05:39] LABS: CALCIUM 8.6 mg/dL (8.5-10.1); CHLORIDE 106 mmol/L (98-107)
[2019-11-14 05:43] LABS: ANION GAP 5 mmol/L (5-15); CREATININE 0.96 mg/dL (0.7-1.3)
[2019-11-14] MEDS: INSULIN LISPRO 100 UNITS/ML, PEN SQ-INSULIN SCH ×4 (07:00→21:16)
[2019-11-14 08:00] VITALS: BP 136/92
[2019-11-14] MEDS: FERROUS SULFATE 325 MG TABLET PO SCH (10:24)
[2019-11-14] MEDS: APIXABAN 5 MG TABLET PO SCH ×2 (10:27→21:04)
[2019-11-14] MEDS: METOPROLOL SUCCINATE 50 MG TAB.ER.24H PO SCH (10:28)
[2019-11-14] MEDS: FUROSEMIDE 40 MG/4 ML IV SCH ×2 (10:29→21:05)
[2019-11-14] MEDS: SODIUM CHLORIDE FLUSH 10ML SYR IVF SCH ×2 (10:30→21:08)
[2019-11-14 14:16] VITALS: BP 116/75
[2019-11-14] MEDS ORDERED: TRAZODONE 50MG TABLET PO SCH (21:00)
[2019-11-14 21:03] VITALS: BP 131/84
[2019-11-14] MEDS: ATORVASTATIN 40 MG TABLET PO SCH (21:04)
[2019-11-15 00:59] VITALS: BP 133/88
[2019-11-15] MEDS: PANTOPROZOLE 40MG TABLET PO SCH (05:33)
[2019-11-15 05:35] LABS: ANION GAP 8 mmol/L (5-15); CALCIUM 8.5 mg/dL (8.5-10.1); CHLORIDE 102 mmol/L (98-107)
[2019-11-15 05:36] LABS: CREATININE 0.93 mg/dL (0.7-1.3)
[2019-11-15 06:44] VITALS: BP 134/87
[2019-11-15] MEDS: INSULIN LISPRO 100 UNITS/ML, PEN SQ-INSULIN SCH ×4 (07:00→21:44)
[2019-11-15] MEDS: FERROUS SULFATE 325 MG TABLET PO SCH (07:22)
[2019-11-15] MEDS ORDERED: POTASSIUM CHLORIDE 20 MEQ TAB.ER.PRT PO ONE ×2 (09:00→17:00)
[2019-11-15] MEDS: SODIUM CHLORIDE FLUSH 10ML SYR IVF SCH ×2 (09:37→20:41)
[2019-11-15] MEDS: APIXABAN 5 MG TABLET PO SCH ×2 (09:37→20:41)
[2019-11-15] MEDS: METOPROLOL SUCCINATE 50 MG TAB.ER.24H PO SCH (09:37)
[2019-11-15] MEDS: FUROSEMIDE 40 MG TABLET PO SCH (09:37)
[2019-11-15 13:30] VITALS: BP 129/86
[2019-11-15] MEDS ORDERED: METOPROLOL SUCCINATE 25 MG TAB.ER.24H PO ONE (17:00)
[2019-11-15 19:28] VITALS: BP 118/77
[2019-11-15] MEDS: TRAZODONE 50MG TABLET PO SCH (20:41)
[2019-11-15] MEDS: ATORVASTATIN 40 MG TABLET PO SCH (20:41)
[2019-11-16 02:09] VITALS: BP 121/75
[2019-11-16] MEDS: PANTOPROZOLE 40MG TABLET PO SCH (05:08)
[2019-11-16 06:46] LABS: ANION GAP 4 mmol/L (5-15); CALCIUM 8.7 mg/dL (8.5-10.1); CHLORIDE 109 mmol/L (98-107); CREATININE 0.89 mg/dL (0.7-1.3)
[2019-11-16 07:05] VITALS: BP 116/76
[2019-11-16] MEDS: METOPROLOL SUCCINATE 50 MG TAB.ER.24H PO SCH (08:00)
[2019-11-16] MEDS: FERROUS SULFATE 325 MG TABLET PO SCH (08:00)
[2019-11-16] MEDS: FUROSEMIDE 40 MG TABLET PO SCH (08:00)
[2019-11-16] MEDS: SODIUM CHLORIDE FLUSH 10ML SYR IVF SCH ×2 (08:01→21:36)
[2019-11-16] MEDS: APIXABAN 5 MG TABLET PO SCH ×2 (08:01→21:40)
[2019-11-16] MEDS: INSULIN LISPRO 100 UNITS/ML, PEN SQ-INSULIN SCH ×4 (08:02→21:54)
[2019-11-16 12:06] VITALS: BP 126/77
[2019-11-16 20:12] VITALS: BP 123/80
[2019-11-16] MEDS: ATORVASTATIN 40 MG TABLET PO SCH (21:40)
[2019-11-16] MEDS: TRAZODONE 50MG TABLET PO SCH (21:40)
[2019-11-17 00:54] VITALS: BP 125/77
[2019-11-17] MEDS: TEMAZEPAM 15 MG CAPSULE PO PRN (01:53)
[2019-11-17] MEDS: PANTOPROZOLE 40MG TABLET PO SCH (05:04)
[2019-11-17 06:55] VITALS: BP 114/73
[2019-11-17] MEDS: INSULIN LISPRO 100 UNITS/ML, PEN SQ-INSULIN SCH ×4 (08:22→20:23)
[2019-11-17] MEDS: METOPROLOL SUCCINATE 50 MG TAB.ER.24H PO SCH (08:23)
[2019-11-17] MEDS: APIXABAN 5 MG TABLET PO SCH ×2 (08:23→19:42)
[2019-11-17] MEDS: FUROSEMIDE 40 MG TABLET PO SCH (08:23)
[2019-11-17] MEDS: FERROUS SULFATE 325 MG TABLET PO SCH (08:23)
[2019-11-17] MEDS: SODIUM CHLORIDE FLUSH 10ML SYR IVF SCH ×2 (08:25→19:41)
[2019-11-17 14:30] VITALS: BP 127/84
[2019-11-17 18:29] VITALS: BP 132/83
[2019-11-17] MEDS: TRAZODONE 50MG TABLET PO SCH (19:42)
[2019-11-17] MEDS: ATORVASTATIN 40 MG TABLET PO SCH (19:42)
[2019-11-18 01:11] VITALS: BP 130/83
[2019-11-18] MEDS: PANTOPROZOLE 40MG TABLET PO SCH (05:22)
[2019-11-18 07:47] VITALS: BP 141/83
[2019-11-18] MEDS: INSULIN LISPRO 100 UNITS/ML, PEN SQ-INSULIN SCH ×2 (08:10→12:03)
[2019-11-18] MEDS: FERROUS SULFATE 325 MG TABLET PO SCH (08:10)
[2019-11-18] MEDS: METOPROLOL SUCCINATE 50 MG TAB.ER.24H PO SCH (08:11)
[2019-11-18] MEDS: APIXABAN 5 MG TABLET PO SCH (08:11)
[2019-11-18] MEDS: FUROSEMIDE 40 MG TABLET PO SCH (08:11)
[2019-11-18] MEDS: SODIUM CHLORIDE FLUSH 10ML SYR IVF SCH (08:13)
[2019-11-18 09:06] LABS: ANION GAP 5 mmol/L (5-15); CALCIUM 8.6 mg/dL (8.5-10.1); CHLORIDE 105 mmol/L (98-107); CREATININE 0.93 mg/dL (0.7-1.3)
[2019-11-18] MEDS ORDERED: FERR-51 PO (11:12)
[2019-11-18] MEDS ORDERED: PANT40TA5 PO (11:12)
[2019-11-18] MEDS ORDERED: FURO40TA6 PO (11:12)
[2019-11-18] MEDS ORDERED: APIX5TAB PO (11:12)
[2019-11-18] MEDS ORDERED: METO-93 PO (11:12)
[2019-11-18 12:35] VITALS: BP 115/73
== END 2019-11-18 16:31 | disposition home health service (06) | DRG 291 ==
LOC: ED 15:28 → EDIP 15:29 → 5SO 19:48 → DCLOUNGE 11-18 16:11
PROVIDERS: ADMIT Hospitalist; ATTEND Hospitalist
DX: I11.0 Hypertensive heart disease with heart failure (principal); J96.01 Acute respiratory failure with hypoxia; D68.69 Other thrombophilia; I50.33 Acute on chronic diastolic (congestive) heart failure; I48.91 Unspecified atrial fibrillation; D50.9 Iron deficiency anemia, unspecified; E78.5 Hyperlipidemia, unspecified; I25.10 Atherosclerotic heart disease of native coronary artery without angina pectoris; E11.9 Type 2 diabetes mellitus without complications; E87.6 Hypokalemia; Z79.01 Long term (current) use of anticoagulants; Z79.899 Other long term (current) drug therapy; Z86.73 Personal history of transient ischemic attack (TIA), and cerebral infarction without residual deficits; Z95.5 Presence of coronary angioplasty implant and graft
CPT/HCPCS: 36415; 71045; 80048; 80053; 82040; 82728; 82962; 83540; 83550; 83735; 83880; 84100; 84484; 85025; 85610; 85730; 93005; 93970; 96374; G0378; J1940; J1815